=== PATIENT | female | born 1955 | race Caucasian/White ===

== ENCOUNTER 2021-10-17 11:56 | Emergency (ER) | payer MEDICARE ==
[~2021-10-17] VITALS: Ht 170.2 cm; Wt 84.1 kg
[~2021-10-17 11:56] MED LIST: FISH OIL; HYDR-4353 PO; LISI5TAB22 PO; METO-395 PO; MULT-342 PO; MV,C400T3 PO; SERT25TA PO; VITAMIN B; VITAMIN C
[2021-10-17 12:29] VITALS: BP 143/86
[2021-10-17 13:16] LABS: BASOPHILS # (AUTO) 0.1 X10'3 (0-0.2); BASOPHILS % (AUTO) 0.8 % (0-1); EOSINOPHILS # (AUTO) 0.3 X10'3 (0-0.9); EOSINOPHILS % (AUTO) 2.9 % (0-6); HEMATOCRIT 33.8 % (35.0-45.0); LYMPHOCYTES # (AUTO) 1.8 X10'3 (1.1-4.8); LYMPHOCYTES % (AUTO) 17.6 % (21-51); MEAN CORPUSCULAR HEMOGLOBIN 27.5 PG (27.0-31.0); MEAN CORPUSCULAR HGB CONC 32.4 g/dL (33.0-36.5); MEAN CORPUSCULAR VOLUME 84.9 FL (78-98); MEAN PLATELET VOLUME 8.4 FL (7.4-10.4); MONOCYTES # (AUTO) 0.5 X10'3 (0-0.9); MONOCYTES % (AUTO) 4.7 % (2-12); NEUTROPHILS # (AUTO) 7.7 X10'3 (1.8-7.7); PLATELET COUNT 252 X10'3 (140-440); RED BLOOD COUNT 3.98 X10'6 (4.20-5.60); RED CELL DISTRIBUTION WIDTH 13.6 % (11.5-14.5); WHITE BLOOD COUNT 10.3 X10'3 (4.5-11.0)
[2021-10-17 13:27] LABS: ALANINE AMINOTRANSFERASE 19 U/L (12-78); ALBUMIN 3.6 G/DL (3.4-5.0); ALKALINE PHOSPHATASE 71 IU/L (46-116); ANION GAP 9 (8-16); ASPARTATE AMINO TRANSFERASE 19 U/L (10-37); BILIRUBIN,TOTAL 0.8 MG/DL (0.1-1.0); BLOOD UREA NITROGEN 26 MG/DL (7-18); BUN/CREATININE RATIO 31.7 (6.6-38.0); CALCIUM 8.4 MG/DL (8.5-10.1); CHLORIDE 107 MMOL/L (99-107); CREATININE 0.82 MG/DL (0.40-0.90); GLUCOSE 102 MG/DL (70-104); POTASSIUM 4.1 MMOL/L (3.5-5.1); SODIUM 142 MMOL/L (135-145); TOTAL CARBON DIOXIDE 25.7 MMOL/L (24-32); TOTAL PROTEIN 7.2 G/DL (6.4-8.2); eGFR 70 ML/MIN
[2021-10-17] MEDS ORDERED: famotidine/PF 10 mg/ml inj IV ONE (15:45)
[2021-10-17] MEDS ORDERED: ondansetron/PF 4mg/2ml inj IV ONE (15:45)
[2021-10-17] MEDS ORDERED: normal saline 1000ML IV soln IVB ONE (15:45)
[2021-10-17 16:18] LABS: CLARITY,URINE CLEAR (Clear); COLOR,URINE YELLOW (Yellow); GLUCOSE, URINE NEGATIVE (Neg); KETONES,URINE NEGATIVE (Neg); LEUKOCYTE ESTERASE ,URINE NEGATIVE (Neg); NITRITES, URINE NEGATIVE (Neg); OCCULT BLOOD,URINE SMALL (Neg); PROTEIN,URINE NEGATIVE (Neg); UA COLLECTION TYPE CLN CATCH MIDSTREAM; UROBILINOGEN,URINE 0.2 E.U/dL (0.2-1.0)
[2021-10-17] MEDS ORDERED: ONDA4TAB12 PO ×2 (16:28)
[2021-10-17 16:39] LABS: BACTERIA,URINE NONE SEEN /HPF (Neg); RBC,URINE 0-2 /HPF (0-2); WBC,URINE 0-4 /HPF (0-4)
[2021-10-17 16:40] LABS: SQUAMOUS EPITHELIAL CELL,UR FEW /LPF (FEW)
== END 2021-10-17 17:55 | disposition home or self-care (01) ==
LOC: ER 11:57
DX: A08.4 Viral intestinal infection, unspecified (principal); R10.30 Lower abdominal pain, unspecified; R11.10 Vomiting, unspecified; K92.1 Melena; R19.7 Diarrhea, unspecified; F32.A Depression, unspecified; Z79.899 Other long term (current) drug therapy
CPT/HCPCS: 36415; 80053; 81001; 85025; 86885; 86900; 86901; 96361; 96374; 96375; 99284; J2405; J3490; J7030

== ENCOUNTER 2021-10-24 09:47 | Inpatient (IN) | payer MEDICARE ==
[~2021-10-24] VITALS: Ht 170.2 cm; Wt 79.5 kg
[2021-10-24] VITALS (7 sets, daily range): BP systolic 126–163; BP diastolic 65–78
[~2021-10-24 09:47] MED LIST changes: +ONDA4TAB12 PO
[2021-10-24 10:18] LABS: BASOPHILS % (AUTO) 0.1 % (0-1); EOSINOPHILS % (AUTO) 0 % (0-6); LYMPHOCYTES # (AUTO) 1.4 X10'3 (1.1-4.8); LYMPHOCYTES % (AUTO) 8.2 % (21-51); MEAN CORPUSCULAR HEMOGLOBIN 28.1 PG (27.0-31.0); MEAN CORPUSCULAR HGB CONC 32.7 g/dL (33.0-36.5); MEAN PLATELET VOLUME 7.6 FL (7.4-10.4); MONOCYTES # (AUTO) 1.1 X10'3 (0-0.9); MONOCYTES % (AUTO) 6.4 % (2-12); NEUTROPHILS # (AUTO) 15.1 X10'3 (1.8-7.7); NEUTROPHILS % (AUTO) 85.3 % (42-75); PLATELET COUNT 358 X10'3 (140-440); RED BLOOD COUNT 2.38 X10'6 (4.20-5.60); RED CELL DISTRIBUTION WIDTH 14.4 % (11.5-14.5); WHITE BLOOD COUNT 17.7 X10'3 (4.5-11.0)
[2021-10-24 10:20] LABS: HEMATOCRIT 20.4 % (35.0-45.0); HEMOGLOBIN 6.7 g/dl (12.0-16.0)
[2021-10-24 10:32] LABS: APTT 22 SECONDS (22-32)
[2021-10-24 10:35] LABS: ALANINE AMINOTRANSFERASE 19 U/L (12-78); ALBUMIN 3.5 G/DL (3.4-5.0); ALBUMIN/GLOBULIN RATIO 1.1 (1.1-1.5); ALKALINE PHOSPHATASE 56 IU/L (46-116); ANION GAP 9 (8-16); ASPARTATE AMINO TRANSFERASE 15 U/L (10-37); BILIRUBIN,TOTAL 0.4 MG/DL (0.1-1.0); BLOOD UREA NITROGEN 16 MG/DL (7-18); BUN/CREATININE RATIO 18.8 (6.6-38.0); CALCIUM 8.5 MG/DL (8.5-10.1); CHLORIDE 107 MMOL/L (99-107); CREATININE 0.85 MG/DL (0.40-0.90); GLUCOSE 112 MG/DL (70-104); POTASSIUM 3.8 MMOL/L (3.5-5.1); SODIUM 141 MMOL/L (135-145); TOTAL CARBON DIOXIDE 24.8 MMOL/L (24-32); TOTAL PROTEIN 6.8 G/DL (6.4-8.2); eGFR 67 ML/MIN
[2021-10-24] MEDS ORDERED: acetaminophen 650mg rectal suppository RC PRN (11:15)
[2021-10-24] MEDS ORDERED: magnesium 4gm in 100ml NS 100 ML IV PRN (11:15)
[2021-10-24] MEDS ORDERED: POTASSIUM BICARB 20meq eff tab 20 MEQ TABLET.EFF PO PRN ×2 (11:15)
[2021-10-24] MEDS ORDERED: mag hydrox/Alum hydrox/simeth 30ml oral suspension PO PRN (11:15)
[2021-10-24] MEDS ORDERED: magnesium Cl slow-release 64mg tablet PO PRN (11:15)
[2021-10-24] MEDS ORDERED: ondansetron/PF 4mg/2ml inj IV PRN (11:15)
[2021-10-24] MEDS ORDERED: magnesium hydroxide 30ml (MOM) UD suspension PO PRN (11:15)
[2021-10-24] MEDS ORDERED: potassium CL 10mEq/100ml bag 100 ML IV PRN (11:15)
[2021-10-24] MEDS ORDERED: acetaminophen 325mg tablet PO PRN (11:15)
[2021-10-24] MEDS ORDERED: magnesium 2GM in 50ml NS 50 ML IV PRN (11:15)
[2021-10-24 11:53] LABS: MAGNESIUM 2.2 MG/DL (1.5-2.4)
[2021-10-24] MEDS ORDERED: ESCI20TA39 PO (12:29)
[2021-10-24] MEDS ORDERED: LISI20TA28 PO (12:32)
--- NOTE | 2021-10-24 13:08 | NUR ---
Pt to CT.
--- NOTE | 2021-10-24 13:59 | NUR ---
tried to call report primary nurse is d/c one of her patient at this time.
--- NOTE | 2021-10-24 14:14 | NUR ---
Patient in room ED 9. I have received report from CHERYL RM, and had the opportunity to ask questions and assume patient care.
[2021-10-24 14:49] LABS: CLARITY,URINE CLEAR (Clear); COLOR,URINE YELLOW (Yellow); GLUCOSE, URINE NEGATIVE (Neg); KETONES,URINE NEGATIVE (Neg); LEUKOCYTE ESTERASE ,URINE NEGATIVE (Neg); NITRITES, URINE NEGATIVE (Neg); OCCULT BLOOD,URINE NEGATIVE (Neg); PH,URINE 5.5 (4.8-8.0); PROTEIN,URINE NEGATIVE (Neg); UROBILINOGEN,URINE 0.2 E.U/dL (0.2-1.0)
[2021-10-24 15:09] LABS: HEMATOCRIT 24.1 % (35.0-45.0); MEAN CORPUSCULAR HEMOGLOBIN 28.6 PG (27.0-31.0); MEAN CORPUSCULAR HGB CONC 33.1 g/dL (33.0-36.5); MEAN CORPUSCULAR VOLUME 86.5 FL (78-98); MEAN PLATELET VOLUME 7.9 FL (7.4-10.4); PLATELET COUNT 321 X10'3 (140-440); RED BLOOD COUNT 2.78 X10'6 (4.20-5.60); RED CELL DISTRIBUTION WIDTH 14.4 % (11.5-14.5); WHITE BLOOD COUNT 16.7 X10'3 (4.5-11.0)
[2021-10-24 15:11] LABS: UA COLLECTION TYPE NON-SPECIFIED
--- NOTE | 2021-10-24 15:18 | NUR ---
PAGE SENT PAGER ID: [phone] MESSAGE: [id number] JENNIFERVALERIELESLIE, HGB - 8, HCT - 24.1. THANK YOU, ANNEMARIE [id number]
--- NOTE | 2021-10-24 18:43 | NUR ---
Problems reprioritized. Patient report given, questions answered & plan of care reviewed with CHERYL YATES.
[2021-10-24] MEDS: K and/or MAG REPLACEMENT MC SCH (19:18)
[2021-10-24] MEDS: docusate sod 100mg capsule PO SCH (19:22)
[2021-10-25] VITALS (16 sets, daily range): BP systolic 120–150; BP diastolic 62–88
[2021-10-25 06:13] LABS: HEMATOCRIT 26.6 % (35.0-45.0); HEMOGLOBIN 8.8 g/dl (12.0-16.0); MEAN CORPUSCULAR HEMOGLOBIN 28.3 PG (27.0-31.0); MEAN CORPUSCULAR VOLUME 85.8 FL (78-98); MEAN PLATELET VOLUME 8.2 FL (7.4-10.4); PLATELET COUNT 311 X10'3 (140-440); RED CELL DISTRIBUTION WIDTH 13.9 % (11.5-14.5); WHITE BLOOD COUNT 12.2 X10'3 (4.5-11.0)
[2021-10-25 06:22] LABS: ALBUMIN 3.4 G/DL (3.4-5.0); ANION GAP 9 (8-16); BLOOD UREA NITROGEN 12 MG/DL (7-18); BUN/CREATININE RATIO 12.8 (6.6-38.0); CALCIUM 8.4 MG/DL (8.5-10.1); CHLORIDE 108 MMOL/L (99-107); CREATININE 0.94 MG/DL (0.40-0.90); GLUCOSE 94 MG/DL (70-104); MAGNESIUM 2.1 MG/DL (1.5-2.4); SODIUM 141 MMOL/L (135-145); TOTAL CARBON DIOXIDE 24.1 MMOL/L (24-32); eGFR 60 ML/MIN
[2021-10-25] MEDS ORDERED: fentaNYL/PF 50MCG/1 ML 2ML syringe ONE (06:26)
[2021-10-25] MEDS ORDERED: LIDOcaine Viscous 15ml cup ONE (06:27)
[2021-10-25] MEDS ORDERED: diphenhydrAMINE 50 mg/ml inj ONE (06:27)
[2021-10-25] MEDS ORDERED: MIDAZolam 1 MG/ML 5ML VIAL ONE (06:27)
--- NOTE | 2021-10-25 06:54 | NUR ---
Patient in room PCU 3020. I have received report from CHERYL LAIRD, and had the opportunity to ask questions and assume patient care.
[2021-10-25] MEDS: K and/or MAG REPLACEMENT MC SCH ×2 (07:02→20:00)
[2021-10-25] MEDS: docusate sod 100mg capsule PO SCH ×2 (08:00→20:00)
[2021-10-25] MEDS ORDERED: PEG 3350/Na sulf,bicarb,Cl/KCl oral sol 4 liter bottle PO ONE (09:15)
[2021-10-25] MEDS: ESCITALOPRAM OXALATE 5 MG TABLET PO SCH (11:17)
[2021-10-25] MEDS: pantoprazole 40mg Tablet.DR PO SCH (11:17)
[2021-10-25] MEDS: lisinopril 10 MG tablet PO SCH (11:18)
--- NOTE | 2021-10-25 12:44 | NUR ---
Malnutrition consult: Pt unsure of wt loss though reports decreased appetite per malnutrition risk screen with RN. No scaled wt hx in EMR though current scaled weight is 129% IBW. Pt on a clear liquid diet, documented with 100% PO intake first meal. Pt with no documented decrease in muscle strength or edema. Pt appears well developed well nourished per H&P. Pt currently lacks a minimum of two criteria for malnutrition. Will continue to follow. Addendum: 10/25/21 at [address] Amended: Links added.
--- NOTE | 2021-10-25 18:10 | NUR ---
Patient in room PCU 3020. I have received report from dimple LUNA and had the opportunity to ask questions and assume patient care.
--- NOTE | 2021-10-25 18:29 | NUR ---
Patient in room PCU 3020. I have received report from CHERYL CHAMBERS, and had the opportunity to ask questions and assume patient care.
[2021-10-26] VITALS (11 sets, daily range): BP systolic 98–138; BP diastolic 59–79
--- NOTE | 2021-10-26 06:09 | NUR ---
Problems reprioritized. Patient report given, questions answered & plan of care reviewed with john rn.
[2021-10-26 06:20] LABS: HEMATOCRIT 26.5 % (35.0-45.0); HEMOGLOBIN 8.9 g/dl (12.0-16.0); MEAN CORPUSCULAR HEMOGLOBIN 28.9 PG (27.0-31.0); MEAN CORPUSCULAR HGB CONC 33.8 g/dL (33.0-36.5); MEAN CORPUSCULAR VOLUME 85.4 FL (78-98); MEAN PLATELET VOLUME 7.9 FL (7.4-10.4); PLATELET COUNT 317 X10'3 (140-440); RED CELL DISTRIBUTION WIDTH 14.5 % (11.5-14.5); WHITE BLOOD COUNT 8.9 X10'3 (4.5-11.0)
--- NOTE | 2021-10-26 06:30 | NUR ---
Patient in room PCU 3020. I have received report from CHERYL Schaeffer and had the opportunity to ask questions and assume patient care.
[2021-10-26 06:41] LABS: ALBUMIN 3.2 G/DL (3.4-5.0); ANION GAP 5 (8-16); BLOOD UREA NITROGEN 11 MG/DL (7-18); BUN/CREATININE RATIO 11.6 (6.6-38.0); CALCIUM 8.4 MG/DL (8.5-10.1); CHLORIDE 109 MMOL/L (99-107); CREATININE 0.95 MG/DL (0.40-0.90); GLUCOSE 89 MG/DL (70-104); MAGNESIUM 2.3 MG/DL (1.5-2.4); SODIUM 142 MMOL/L (135-145); TOTAL CARBON DIOXIDE 28.3 MMOL/L (24-32); eGFR 59 ML/MIN
[2021-10-26] MEDS: K and/or MAG REPLACEMENT MC SCH (08:00)
[2021-10-26] MEDS ORDERED: normal saline 1000ml 1,000 ML IV SCH (08:05)
[2021-10-26] MEDS: pantoprazole 40mg Tablet.DR PO SCH (09:16)
[2021-10-26] MEDS: lisinopril 10 MG tablet PO SCH (09:16)
[2021-10-26] MEDS: docusate sod 100mg capsule PO SCH (09:17)
[2021-10-26] MEDS: ESCITALOPRAM OXALATE 5 MG TABLET PO SCH (09:17)
[2021-10-26] MEDS ORDERED: MIDAZolam 1 MG/ML 5ML VIAL ONE (10:12)
[2021-10-26] MEDS ORDERED: fentaNYL/PF 50MCG/1 ML 2ML syringe ONE (10:12)
[2021-10-26] MEDS ORDERED: diphenhydrAMINE 50 mg/ml inj ONE (10:13)
[2021-10-26] MEDS ORDERED: PANT40TA54 PO (11:04)
--- NOTE | 2021-10-26 15:50 | NUR ---
DC inst provided to pt & pt's . IV DC'd, tip intact. All belongings sent w/pt. Pt ambulated to vehicle.
--- NOTE | 2021-11-01 12:27 | NUR ---
Case Management DC follow up: Left with phone number, name and reason for calling
== END 2021-10-26 16:28 | disposition home or self-care (01) | DRG 377 ==
LOC: ER 09:47 → ED HOLD 11:17 → PCU 3S 14:25 → OBSVTOIN 10-25 09:00
PROVIDERS: ADMIT Family Medicine; ATTEND Family Medicine
PROC: 30233N1 Transfusion of Nonautologous Red Blood Cells into Peripheral Vein, Percutaneous Approach (ICD-10-PCS; 2021-10-24)
PROC: 0DB68ZX Excision of Stomach, Via Natural or Artificial Opening Endoscopic, Diagnostic (ICD-10-PCS; 2021-10-25)
PROC: 0DJD8ZZ Inspection of Lower Intestinal Tract, Via Natural or Artificial Opening Endoscopic (ICD-10-PCS; principal; 2021-10-26)
DX: K57.31 Diverticulosis of large intestine without perforation or abscess with bleeding (principal); K21.01 Gastro-esophageal reflux disease with esophagitis, with bleeding; D62 Acute posthemorrhagic anemia; F32.A Depression, unspecified; I10 Essential (primary) hypertension; K64.8 Other hemorrhoids; D72.829 Elevated white blood cell count, unspecified; K29.80 Duodenitis without bleeding; R00.0 Tachycardia, unspecified; M17.0 Bilateral primary osteoarthritis of knee; Z79.82 Long term (current) use of aspirin
CPT/HCPCS: 36415; 36430; 43239; 45378; 71045; 74176; 80048; 80053; 81003; 83735; 85025; 85027; 85610; 85730; 86885; 86900; 86901; 86920; 88305; 99152; 99153; 99285; A4620; G0378; J1200; J2250; J3010; J7030; P9016